=== PATIENT | female | born 1990 | race Caucasian/White ===

== ENCOUNTER 2021-02-17 15:08 | Inpatient (IN) | payer OTHER ==
[~2021-02-17] VITALS: Ht 165.1 cm; Wt 79.1 kg
[2021-02-22] MEDS ORDERED: OXYTOCIN 30U/ 0.9% NaCL 500ML 500 ML ONE (04:15)
[2021-02-22] MEDS ORDERED: NEWBORN KIT ONE (04:15)
[2021-02-22] MEDS ORDERED: LIDOCAINE 1%, 20ML ONE (04:15)
[2021-02-22] MEDS ORDERED: ONDANSETRON 2MG/ML, 2ML IVPush PRN ×2 (04:30→21:30)
[2021-02-22] MEDS ORDERED: FENTANYL PF 100 MCG/2ML IVPush PRN (04:30)
[2021-02-22] MEDS ORDERED: TERBUTALINE 1 MG/ML, 1ML SQ PRN (04:30)
[2021-02-22] MEDS ORDERED: CALCIUM CARBONATE 500 MG TAB.CHEW PO PRN ×2 (04:30→21:30)
[2021-02-22] MEDS ORDERED: TERBUTALINE 1 MG/ML, 1ML IVPush PRN (04:30)
[2021-02-22] MEDS ORDERED: FENTANYL PF 100 MCG/2ML IV PRN ×2 (04:30→21:30)
[2021-02-22] MEDS ORDERED: D5%-LACTATED RINGERS 1,000 ML IV SCH (04:30)
[2021-02-22] MEDS ORDERED: MISOPROSTOL 25 MCG TABLET VG PRN (04:30)
[2021-02-22] MEDS ORDERED: LACTATED RINGERS 1,000 ML IV SCH (04:30)
[2021-02-22] MEDS ORDERED: OXYTOCIN 30U/ 0.9% NaCL 500ML 500 ML IV PRN (04:30)
[2021-02-22] MEDS ORDERED: MISOPROSTOL 25 MCG TABLET ONE (04:47)
[2021-02-22 05:18] VITALS: BP 125/68
[2021-02-22] MEDS ORDERED: PLEASE ENTER ALLERGIES MC SCH (05:30)
[2021-02-22 06:32] LABS: BASOPHILS % (AUTO) 0 % (0-1); EOSINOPHILS % (AUTO) 1 % (1-7); LYMPHOCYTES % (AUTO) 16 % (22-44); MEAN CORPUSCULAR HEMOGLOBIN 29.3 pg (27.0-34.8); MEAN CORPUSCULAR HGB CONC 34.7 g/dL (32.4-35.8); MONOCYTES % (AUTO) 7 % (2-9); NEUTROPHILS % (AUTO) 75 % (42-75); PLATELET COUNT 231 x10^3/uL (130-400); RED BLOOD COUNT 3.82 x10^6/uL (3.82-5.3); RED CELL DISTRIBUTION WIDTH 14.2 % (9.6-15.2)
[2021-02-22] MEDS ORDERED: FENTANYL/BUPIV./NS/PF 250 ML EPIDCONT ONE (15:32)
[2021-02-22] MEDS ORDERED: BUPIVACAINE 0.25% ONE (15:32)
[2021-02-22] MEDS ORDERED: SODIUM CITRATE/CITRIC ACID 15 ML UDC ONE (19:36)
[2021-02-22] MEDS ORDERED: METOCLOPRAMIDE 5 MG/ML, 2ML ONE (19:36)
[2021-02-22] MEDS ORDERED: CEFAZOLIN 1,000 MG ONE ×2 (19:48)
[2021-02-22] MEDS ORDERED: KETOROLAC 30 MG/1 ML ONE (19:48)
[2021-02-22] MEDS ORDERED: FENTANYL PF 100 MCG/2ML ONE (19:48)
[2021-02-22] MEDS ORDERED: OXYTOCIN 10 UNITS/ML, 1ML ONE ×4 (19:48)
[2021-02-22] MEDS ORDERED: LIDOCAINE/MPF 2%-EPI 1:200K, 20 ML ONE (19:49)
[2021-02-22] MEDS ORDERED: METOCLOPRAMIDE 5 MG/ML, 2ML IV ONE (20:00)
[2021-02-22] MEDS ORDERED: LACTATED RINGERS 1,000 ML IVBOLUS ONE (20:00)
[2021-02-22] MEDS ORDERED: SODIUM CITRATE/CITRIC ACID 30 ML UDC PO ONE (20:00)
[2021-02-22] MEDS ORDERED: AZITHROMYCIN 500 MG in SODIUM CHLORIDE 0.9% 250 ML IV ONE (20:00)
[2021-02-22] MEDS ORDERED: ONDANSETRON 2MG/ML, 2ML ONE (20:30)
[2021-02-22] MEDS ORDERED: DEXAMETHASONE 4 MG/ML, 1ML ONE (20:30)
[2021-02-22] MEDS ORDERED: MEPERIDINE/PF 50 MG/ML ONE (21:27)
[2021-02-22] MEDS ORDERED: CARBOPROST TROMETHAMINE 250 MCG/ML, 1ML IM PRN (21:30)
[2021-02-22] MEDS ORDERED: ALBUTEROL SULFATE 2.5 MG/3 ML NPPB PRN (21:30)
[2021-02-22] MEDS ORDERED: ACETAMINOPHEN 325 MG TABLET PO PRN ×3 (21:30)
[2021-02-22] MEDS ORDERED: MEPERIDINE/PF 25MG/0.5ML IVPush PRN (21:30)
[2021-02-22] MEDS ORDERED: EPHEDRINE 50 MG/ML, 1ML IVPush PRN (21:30)
[2021-02-22] MEDS ORDERED: OXYcodone 5 MG/5 ML ORAL.SOL UDC PO PRN (21:30)
[2021-02-22] MEDS ORDERED: ONDANSETRON 2MG/ML, 2ML IV PRN (21:30)
[2021-02-22] MEDS: LACTATED RINGERS 1,000 ML IV SCH ×2 (21:30→21:40)
[2021-02-22] MEDS ORDERED: METHYLERGONOVINE 0.2 MG/ML IM PRN (21:30)
[2021-02-22] MEDS ORDERED: DIPHENHYDRAMINE 50 MG/ML, 1ML IVPush PRN (21:30)
[2021-02-22] MEDS ORDERED: SIMETHICONE 80 MG CHEW TAB PO PRN (21:30)
[2021-02-22] MEDS ORDERED: MISOPROSTOL 200 MCG TABLET PR PRN (21:30)
[2021-02-22] MEDS ORDERED: HYDROmorphone 1 MG/ML, 1ML INJ IVPush PRN (21:30)
[2021-02-22] MEDS ORDERED: MORPHINE SULFATE 4 MG/ML, 1ML IVPush PRN (21:30)
[2021-02-22] MEDS ORDERED: morphine SULFATE 10 MG/ML, 1ML IM PRN (21:30)
[2021-02-22] MEDS: OXYTOCIN 30U/ 0.9% NaCL 500ML 500 ML IV SCH (21:40)
[2021-02-22 23:00] VITALS: BP 108/66
[2021-02-22] MEDS: OXYcodone/APAP 5/325MG TABLET PO PRN (23:33)
[2021-02-23] MEDS: OXYcodone/APAP 5/325MG TABLET PO PRN ×6 (00:42→20:15)
[2021-02-23] MEDS: IBUPROFEN 600 MG TABLET PO PRN ×4 (00:42→20:15)
[2021-02-23 03:48] VITALS: BP 110/67
[2021-02-23 04:56] LABS: BASOPHILS % (AUTO) 1 % (0-1); EOSINOPHILS % (AUTO) 0 % (1-7); LYMPHOCYTES % (AUTO) 6 % (22-44); MEAN CORPUSCULAR HEMOGLOBIN 28.6 pg (27.0-34.8); MEAN PLATELET VOLUME 7.8 fL (7.4-10.4); MONOCYTES % (AUTO) 5 % (2-9); NEUTROPHILS % (AUTO) 88 % (42-75); PLATELET COUNT 196 x10^3/uL (130-400); RED CELL DISTRIBUTION WIDTH 13.6 % (9.6-15.2)
[2021-02-23] MEDS: LACTATED RINGERS 1,000 ML IV SCH ×5 (05:30→21:30)
[2021-02-23 07:00] VITALS: BP 105/69
[2021-02-23] MEDS: OXYTOCIN 30U/ 0.9% NaCL 500ML 500 ML IV SCH ×2 (07:30→17:16)
[2021-02-23] MEDS: PRENATAL VIT/IRON/FA 1 EACH TABLET PO SCH (08:06)
[2021-02-23] MEDS: DOCUSATE 100 MG CAPSULE PO PRN ×2 (08:07→20:15)
[2021-02-23] MEDS: FERROUS SULFATE 325 MG TABLET PO SCH (08:35)
[2021-02-23 11:50] VITALS: BP 106/67
[2021-02-23 16:15] VITALS: BP 102/63
[2021-02-23 19:31] VITALS: BP 100/65
[2021-02-24] MEDS: OXYcodone/APAP 5/325MG TABLET PO PRN ×3 (00:14→08:19)
[2021-02-24] MEDS: IBUPROFEN 600 MG TABLET PO PRN ×2 (02:25→08:19)
[2021-02-24] MEDS: OXYTOCIN 30U/ 0.9% NaCL 500ML 500 ML IV SCH (03:30)
[2021-02-24] MEDS: LACTATED RINGERS 1,000 ML IV SCH ×2 (03:30→05:30)
[2021-02-24 07:35] VITALS: BP 100/65
[2021-02-24] MEDS: PRENATAL VIT/IRON/FA 1 EACH TABLET PO SCH (08:19)
[2021-02-24] MEDS: FERROUS SULFATE 325 MG TABLET PO SCH (08:19)
[2021-02-24] MEDS: DOCUSATE 100 MG CAPSULE PO PRN (08:19)
[2021-02-24] MEDS ORDERED: IBUP-1222 PO (08:59)
[2021-02-24] MEDS ORDERED: OXYC1TAB12 PO (08:59)
[2021-02-24] MEDS ORDERED: FERR-36 PO (09:00)
== END 2021-02-24 11:01 | disposition home or self-care (01) | DRG 787 ==
LOC: LDIP 02-22 03:59 → 2NW 02-22 22:45
PROVIDERS: ADMIT Obstetrics & Gynecology; ATTEND Obstetrics & Gynecology
PROC: 10D00Z1 Extraction of Products of Conception, Low, Open Approach (ICD-10-PCS; principal; 2021-02-22)
PROC: 3E0DXGC Introduction of Other Therapeutic Substance into Mouth and Pharynx, External Approach (ICD-10-PCS; 2021-02-22)
PROC: 3E033VJ Introduction of Other Hormone into Peripheral Vein, Percutaneous Approach (ICD-10-PCS; 2021-02-22)
DX: O48.0 Post-term pregnancy (principal); D62 Acute posthemorrhagic anemia; O76 Abnormality in fetal heart rate and rhythm complicating labor and delivery; O90.81 Anemia of the puerperium; Z37.0 Single live birth; Z3A.40 40 weeks gestation of pregnancy; Z20.822 Contact with and (suspected) exposure to COVID-19; O69.81X0 Labor and delivery complicated by cord around neck, without compression, not applicable or unspecified
CPT/HCPCS: 36415; 85025; 86592; 86850; 86900; 87635; G0378; J0456; J0690; J1100; J1885; J2175; J2405; J3010; J2590; J2765; J3105; J7050; J7120